=== PATIENT | female | born 1955 | race Two or more races ===

== ENCOUNTER 2021-04-21 10:45 | Inpatient (IN) | payer OTHER ==
[~2021-04-21] VITALS: Ht 167.6 cm; Wt 83.5 kg
[~2021-04-21 10:45] MED LIST: CIPROFLOXACIN750 MG PO; CLONAZEPAM1 MG PO; DIOVAN HCT 160-1 TAB PO; DOCUSATE SODIU100 MG PO; FLAGYL500MG PO; GABAPENTIN800 MG PO; PERCOCET 5/3251 TAB PO
[2021-04-21] MEDS ORDERED: LIPITOR80 MG PO (11:07)
[2021-04-24] MEDS ORDERED: DIAZEPAM5 MG PO (13:24)
[2021-04-24] MEDS ORDERED: MEDROLPACK PO (13:24)
[2021-04-24] MEDS ORDERED: NEURONTIN800 MG PO (13:24)
[2021-04-24] MEDS ORDERED: AMOX-CLAV 875-1 EACH PO (13:24)
[2021-04-24] MEDS ORDERED: PERCOCET 5-3251 EACH PO (13:24)
[2021-04-24] MEDS ORDERED: COLACE100 MG PO (13:24)
== END 2021-04-26 15:33 | disposition home or self-care (01) | DRG 460 ==
LOC: O/R 04-24 07:24 → SURH 04-24 10:45 → PED 04-24 19:56
PROVIDERS: ADMIT Orthopaedic Surgery Orthopaedic Surgery of the Spine; ATTEND Orthopaedic Surgery Orthopaedic Surgery of the Spine
PROC: 00NY0ZZ Release Lumbar Spinal Cord, Open Approach (ICD-10-PCS; 2021-04-24)
PROC: 07DR0ZZ Extraction of Iliac Bone Marrow, Open Approach (ICD-10-PCS; 2021-04-24)
PROC: 0SG30AJ Fusion of Lumbosacral Joint with Interbody Fusion Device, Posterior Approach, Anterior Column, Open Approach (ICD-10-PCS; principal; 2021-04-24 16:45)
DX: M51.17 Intervertebral disc disorders with radiculopathy, lumbosacral region (principal); M96.0 Pseudarthrosis after fusion or arthrodesis; M24.29 Disorder of ligament, other specified site; I10 Essential (primary) hypertension